=== PATIENT | male | born 1975 | race Caucasian/White ===

== ENCOUNTER 2022-05-03 11:36 | Inpatient (IN) | payer OTHER ==
[~2022-05-03] VITALS: Ht 200.7 cm; Wt 159.2 kg
--- NOTE | 2022-05-03 11:43 | NUR ---
[id number], left leg got caught on plumbing possible broken, fentanyl 100mcg and zofran 4mg given on scene, air splint on the left leg. pain is currently 6/10. vitals are within normal limits. dr perry at bedside.
--- NOTE | 2022-05-03 12:07 | NUR ---
X RAY AT BEDSIDE
[2022-05-03] MEDS ORDERED: TRAM50TA2 PO (12:15)
[2022-05-03] MEDS ORDERED: METH-647 PO (12:15)
[2022-05-03] MEDS ORDERED: LOSA100T31 PO (12:15)
[2022-05-03] MEDS ORDERED: METH750T3 PO (12:35)
[2022-05-03] MEDS ORDERED: DICL75TA5 PO (12:36)
[2022-05-03 13:03] LABS: BASOPHILS % (AUTO) 0.3 % (0.0-2.0); EOSINOPHILS % (AUTO) 1.4 % (0.0-6.0); HEMATOCRIT 43 % (39-51); HEMOGLOBIN 14.9 g/dL (13.5-17.5); LYMPHOCYTES # (AUTO) 1.2 K/uL (0.8-4.8); MEAN CORPUSCULAR HGB CONC 35 g/dl (31.0-36.0); MEAN CORPUSCULAR VOLUME 94 fL (80-96); MONOCYTES # (AUTO) 0.5 K/uL (0.1-1.30); MONOCYTES % (AUTO) 7.2 % (2.0-12.0); NEUTROPHILS # (AUTO) 5.7 K/uL (1.8-8.9); NEUTROPHILS % (AUTO) 75.1 % (43.0-81.0); PLATELET COUNT (AUTO) 176 K/uL (150-450); RED BLOOD CELL COUNT(AUTO) 4.54 MIL/uL (4.5-6.0); WHITE BLOOD COUNT (AUTO) 7.6 K/uL (4.3-11.0)
[2022-05-03 13:16] LABS: CALCIUM, SERUM 8.8 mg/dL (8.5-10.1); CREATININE 0.8 mg/dL (0.6-1.3); POTASSIUM 4.1 mmol/L (3.5-5.1)
[2022-05-03] MEDS ORDERED: HYDROMORPHONE 1 MG/1 ML DISP.SYRIN ONE ×2 (14:00→17:15)
[2022-05-03] MEDS ORDERED: ONDANSETRON HCL/PF 4 MG/2 ML VIAL ONE (14:00)
[2022-05-03] MEDS ORDERED: ONDANSETRON HCL/PF - ER 4 MG/2 ML VIAL IV ONE (14:00)
[2022-05-03] MEDS ORDERED: HYDROMORPHONE 1 MG/1 ML DISP.SYRIN IV ONE (14:00)
--- NOTE | 2022-05-03 14:47 | NUR ---
SPOKE TO JULIO MONGE AND STATED DR JONES WILL CONTACT US FOR PEER TO PEER AND FOR CLINICALS TO BE FAXED TO [phone] AND [phone]
--- NOTE | 2022-05-03 15:06 | NUR ---
FAXED CLINICALS TO [phone]
--- NOTE | 2022-05-03 15:20 | NUR ---
GOT VERBAL AUTHORIZATION FROM JULIO BEE FOR PT TO STAY
[2022-05-03] MEDS ORDERED: IV NS 0.9% 1,000 ML BAG IV ONE (15:30)
--- NOTE | 2022-05-03 15:50 | NUR ---
DR CHESTER AT BEDSIDE FOR EVAL.
--- NOTE | 2022-05-03 15:52 | NUR ---
DR CHESTER STATED PT WILL NOT BE RECIVING SURGERY TODAY, PT PROVIDED WITH FLUID AND SNACKS.
[2022-05-03] MEDS ORDERED: HYDROMORPHONE 1 MG/1 ML DISP.SYRIN IV STA (17:13)
[2022-05-03] MEDS ORDERED: MAGNESIUM HYDROXIDE 30 ML UDC PO PRN (17:30)
[2022-05-03] MEDS ORDERED: ACETAMINOPHEN 325 MG TABLET PO PRN (17:30)
[2022-05-03] MEDS ORDERED: MAG HYDROX/AL HYDROX/SIMETH 30 ML UDC PO PRN (17:30)
[2022-05-03] MEDS ORDERED: ONDANSETRON HCL/PF 4 MG/2 ML VIAL IVP PRN (17:30)
[2022-05-03] MEDS ORDERED: Z GUARD REMEDY 4 OZ OINT TP PRN (17:30)
--- NOTE | 2022-05-03 17:57 | NUR ---
room 312-2
--- NOTE | 2022-05-03 18:02 | NUR ---
report given to nurse Garland for luc
--- NOTE | 2022-05-03 18:15 | NUR ---
RN NOTE RECEIVED REPORT FROM ANTON.
--- NOTE | 2022-05-03 19:30 | NUR ---
MS DIRECTOR OF COMPENSATION NOTES RECEIVED ON BED PER GURNEY FROM ER,INJURED FROM WORK,SUSTAINED FRACTURE ON LEFT TIBIA.WITH SPLINT WRAPPED WITH SURGICAL DRESSING,ELEVATED ON PILLOWS.PAIN TOLERABLE AT THE MOMENT.SALINE LOCK RIGHT AC INTACT AND PATENT.WITH KNOWN HX OF BACK ARTHRITIS,HYPERTENSION AND RIGHT HIP SURGERY 3 YRS AGO,FULLY VACCINATED WITH COVID VACCINE MODERNA,NO SKIN ISSUES BESIDE INJURED LEFT LEG.INSTRUCTED NPO POST MIDNIGHT FOR LEFT TIBIA OPEN REDUCTION AND INTERNAL FIXATION BY DR ROSAS.WILL MONITOR FOE PAIN,CALL LIGHT IN REACH,NEEDS ANTICIPATED.
--- NOTE | 2022-05-03 19:42 | NUR ---
RN NOTE NEW ADMISSION, V/S TAKEN AND STABLE, BELONGINGS LIST CHECKED AND SIGNED, REPORT WAS ENDORSE TO [place] TECHNICIAN NURSE.
[2022-05-03 20:00] VITALS: BP 138/74
[2022-05-03] MEDS: MORPHINE SULFATE INJ 2 MG/ML DISP.SYRIN IV PRN (20:48)
--- NOTE | 2022-05-03 20:48 | NUR ---
MS RN NOTES PAIN MANAGEMENT C/O LEFT LEG PAIN 06/16 ON PAIN SCALE,MORPHINE 2MG IV GIVEN ORDERED,VITAL SIGNS STABLE
[2022-05-04] VITALS (7 sets, daily range): BP systolic 127–158; BP diastolic 61–89
--- NOTE | 2022-05-04 | NUR ---
MS RN NOTES INSTRUCTED NPO THIS TIME,GOING FOR LEFT TIBIA OPEN REDUCTION AND INTERNAL FIXATION BY DR CHESTER,SCHEDULED AT [id number]
--- NOTE | 2022-05-04 00:15 | NUR ---
MS RN NOTES UNABLE TO FLUSH IV SITE,NEW SALINE LOCK PLACE ON LEFT AC #20.FLUSHED WITH NS AND KEPT PATENT.
[2022-05-04] MEDS: MORPHINE SULFATE INJ 2 MG/ML DISP.SYRIN IV PRN (00:37)
--- NOTE | 2022-05-04 00:37 | NUR ---
MS RN NOTES PAIN MANAGEMENT C/O PAIN 8/10 ON PAIN LEFT LOWER LEG,MORPHINE 2MG IV GIVEN ORDERED.VITAL SIGNS STABLE.
--- NOTE | 2022-05-04 03:00 | NUR ---
MS RN NOTES AWAKE THIS TIME,HAVING THROBBING PAIN ON LEFT LOWER LEG,HOSPITALIST MADE AWARE WITH NEW ORDER NOTED AND CARRIED OUT.
[2022-05-04] MEDS: METHOCARBAMOL (750MG) 750 MG TABLET PO SCH ×2 (03:24→21:38)
[2022-05-04] MEDS: HYDROMORPHONE 1 MG/1 ML DISP.SYRIN IV PRN ×4 (03:32→22:29)
--- NOTE | 2022-05-04 03:32 | NUR ---
MS RN NOTES PAIN MANAGEMENT PAIN ON LEFT KNEE 9-10/10 ON PAIN SCALE,FACIAL GRIMACE NOTED,DILAUDID 1MG IV GIVEN ORDERED.
[2022-05-04 06:24] LABS: BASOPHILS % (AUTO) 0.3 % (0.0-2.0); EOSINOPHILS % (AUTO) 2.2 % (0.0-6.0); HEMATOCRIT 41 % (39-51); HEMOGLOBIN 14.2 g/dL (13.5-17.5); LYMPHOCYTES # (AUTO) 1.4 K/uL (0.8-4.8); MEAN CORPUSCULAR HGB CONC 35 g/dl (31.0-36.0); MEAN CORPUSCULAR VOLUME 95 fL (80-96); MONOCYTES # (AUTO) 0.9 K/uL (0.1-1.30); MONOCYTES % (AUTO) 11.7 % (2.0-12.0); NEUTROPHILS # (AUTO) 5.6 K/uL (1.8-8.9); NEUTROPHILS % (AUTO) 68.8 % (43.0-81.0); PLATELET COUNT (AUTO) 162 K/uL (150-450); RED BLOOD CELL COUNT(AUTO) 4.32 MIL/uL (4.5-6.0); WHITE BLOOD COUNT (AUTO) 8.1 K/uL (4.3-11.0)
[2022-05-04 06:37] LABS: CALCIUM, SERUM 8.8 mg/dL (8.5-10.1); CREATININE 0.8 mg/dL (0.6-1.3); PHOSPHORUS 3.9 mg/dL (2.5-4.9)
--- NOTE | 2022-05-04 06:52 | NUR ---
MS RN NOTES MORNING CARE RENDERED,KEPT NPO ORDERED FOR ORIF LEFT TIBIA
--- NOTE | 2022-05-04 06:58 | NUR ---
MS RN NOTES SURGERY SPECIALIST BY ELVIS ALVARADO IN STABLE CONDITION
[2022-05-04] MEDS ORDERED: BUPIVACAINE 0.25% 75 MG/30 ML VIAL ONE (07:19)
[2022-05-04] MEDS ORDERED: MIDAZOLAM HCL 2 MG/2ML VIAL ONE ×2 (07:21→07:22)
[2022-05-04] MEDS ORDERED: HYDROMORPHONE INJ 2 MG/ML DISP.SYRIN ONE (07:22)
[2022-05-04] MEDS ORDERED: ROCURONIUM BROMIDE 50 MG/5 ML ONE ×3 (07:22→08:53)
--- NOTE | 2022-05-04 07:55 | NUR ---
MS RN OPENING NOTE Report given by KEVIN Sebastian. Patient brought to OR for surgery.
[2022-05-04] MEDS ORDERED: HYDROGEN PEROXIDE 480 ML BOTTLE ONE (09:35)
[2022-05-04] MEDS ORDERED: BACITRACIN ZINC OINT (15 GM) 15 GM TUBE TP ONE (10:13)
[2022-05-04] MEDS ORDERED: FENTANYL PF 100MCG/2ML AMPUL ONE (10:47)
--- NOTE | 2022-05-04 11:45 | NUR ---
RN NOTE Received patient from recovery room via bed. Patient is stable with the following VS: BP 146/75; HR 74; Temp 99.1; SPO2 92% on room air. Skin on left foot is warm with good capillary refill. Patient denies any pain or discomfort at this time. Will continue to monitor.
[2022-05-04] MEDS: LOSARTAN POTASSIUM 50 MG TABLET PO SCH (11:48)
--- NOTE | 2022-05-04 12:00 | NUR ---
RN NOTE Patient remains stable with VS: BP 139/89, HR 81, RR 19, Temp 97.6, SPO2 95% on room air. Patient able to move toes on Left foot, warm to touch with good capillary refill.
--- NOTE | 2022-05-04 12:15 | NUR ---
RN NOTE Patient remains stable with VS: BP 142/85, HR 84, RR 18, Temp 97.8, SPO2 98% on room air. Patient able to move toes on Left foot, warm to touch with good capillary refill.
--- NOTE | 2022-05-04 12:30 | NUR ---
RN NOTE Patient remains stable with VS: BP 137/75, HR 87, RR 18, Temp 97.7, SPO2 96% on room air. Patient able to move toes on Left foot, warm to touch with good capillary refill.
--- NOTE | 2022-05-04 12:57 | NUR ---
RN NOTE Patient complained of pain on LLE 8/10 on pain scale. PRN Dilaudid 1 mg given. Will continue to monitor.
[2022-05-04] MEDS ORDERED: DOCUSATE SODIUM 250 MG CAPSULE PO PRN (13:00)
[2022-05-04] MEDS ORDERED: SENNOSIDES 8.6 MG TABLET PO PRN (13:00)
[2022-05-04] MEDS ORDERED: ONDANSETRON HCL/PF 4 MG/2 ML VIAL IV PRN (13:00)
[2022-05-04] MEDS ORDERED: MORPHINE SULFATE INJ 4 MG/ML DISP.SYRIN IV PRN (13:00)
[2022-05-04] MEDS ORDERED: BISACODYL SUPP (10 MG) 10 MG/SUPP.RECT SUPP.RECT RC PRN (13:00)
[2022-05-04] MEDS ORDERED: ZOLPIDEM TARTRATE 5 MG TABLET PO PRN (13:00)
[2022-05-04] MEDS: ANCEF 1 GM/50 ML D5W IV SCH ×4 (16:00→23:16)
--- NOTE | 2022-05-04 18:55 | NUR ---
MS RN CLOSING NOTE Patient in bed, dozing in and out of sleep. A/O x 4, able to make needs known. On room air, breathing evenly and unlabored. No SOB or s/s of distress noted. IV access on Left wrist #20 SL intact and patent. All needs attended to. Due meds given. Surgical dressing on LLE c/d/i. LLE kept elevated at all times with ice. Patient able to move toes on left foot, warm to touch, with good capillary refill. Patient complaining pain on LLe, will give PRN pain medication. Safety precautions maintained: bed in low, locked position; siderails up x 2; diaz light within reach. Will endorse to gripper installer nurse for CARRIE.
--- NOTE | 2022-05-04 22:29 | NUR ---
MS RN NOTES PAIN MANAGEMENT AWAKEM THIS TIME,C/O PAIN ON LEFT LEFT 9/10 ON PAIN SCALE,DILAUDID 1MG IV ORDERED.VITAL SIGNS STABLE.
--- NOTE | 2022-05-04 23:30 | NUR ---
MS RN NOTES LAST DOSE OF ANCEF HUNG
[2022-05-05] MEDS: HYDROMORPHONE 1 MG/1 ML DISP.SYRIN IV PRN ×3 (02:11→10:21)
--- NOTE | 2022-05-05 02:11 | NUR ---
MS RN NOTES PAIN MANAGEMENT AWAKE,HAVING STRONG PAIN ON LEFT LEG,DILAUDID 1MG IV GIVEN PER PATIENT PATIENT REQUEST,ICE CAP TO SURGICAL SITE.
--- NOTE | 2022-05-05 06:16 | NUR ---
MS RN NOTES PAIN MANAGEMENT AWAKE,IN PAIN 9/10 ON PAIN SCALE,DILAUDID 1MG IV GIVEN ORDERED, INCENTIVE SPIROMETRY WHILE AWAKE.
--- NOTE | 2022-05-05 06:36 | NUR ---
MS RN NOTES ON BED A/O X4,SLEEP WITH INTERVALS.STILL IN A LOT PAIN,MANAGE WITH DILAUDID 1 MG IV,S/P ORIF LEFT TIBIA,DRESSING INTACT AND DRY ELEVATED ON FOLDED LINEN,NO PILLOWS PLEASE DIRECTED.LOVENOX TO START TODAY.CALL LIGHT IN REACH,NEEDS ATTENDED.
--- NOTE | 2022-05-05 07:50 | NUR ---
MS RN OPENING NOTES RECEIVED PATIENT IN BED, AWAKE, A/O X4. PATIENT ON ROOM AIR; BREATHING EVEN AND UNLABORED; NO SOB NOTED AT THIS TIME. COMPLAINING OF L KNEE PAIN. PAIN IS TREATED WITH PRN PAIN MEDICATION PER MD ORDER. IV ACCESS IN L WRIST G # 20 HL. SAFETY PRECAUTIONS IN PLACE; BED IN LOW POSITION AND LOCKED, RAILS UP X2, CALL LIGHT WITHIN REACH. WILL CONTINUE TO MONITOR PATIENT.
[2022-05-05 08:00] VITALS: BP 120/65
[2022-05-05] MEDS: ENOXAPARIN SODIUM 40 MG/0.4 ML DISP.SYRIN SQ SCH (08:07)
[2022-05-05] MEDS: LOSARTAN POTASSIUM 50 MG TABLET PO SCH (09:00)
--- NOTE | 2022-05-05 10:24 | NUR ---
MS RN NOTES PATIENT COMPLAINING OF PAIN 8 OUT OF 10 IN HIS L KNEE. REQUESTING PRN PAIN MEDICATION. PAIN MEDICATION ADMINISTERED. WILL REASSESS.
[2022-05-05] MEDS: HYDROCODONE/APAP 5/325MG TABLET PO PRN ×2 (15:00→19:48)
--- NOTE | 2022-05-05 15:01 | NUR ---
MS RN NOTES PATIENT COMPLAINING OF PAIN 6 OUT OF 10 IN HIS L KNEE. REQUESTING PRN PAIN MEDICATION. PRN NORCO 5/325 ADMINISTERED. WILL REASSESS.
[2022-05-05 16:15] VITALS: BP 126/65
--- NOTE | 2022-05-05 18:44 | NUR ---
MS RN CLOSING NOTES PATIENT REMAINS IN BED, AWAKE, A/O X4. PATIENT ON ROOM AIR; BREATHING EVEN AND UNLABORED; NO SOB NOTED DURING SHIFT. COMPLAINING OF L KNEE PAIN. PAIN IS TREATED WITH PRN PAIN MEDICATION PER MD ORDER DURING THE DAY. IV ACCESS IN L WRIST G # 20 HL. ALL NEEDS ATTENDED DURING THE DAY. SAFETY PRECAUTIONS IN PLACE; BED IN LOW POSITION AND LOCKED, RAILS UP X2, CALL LIGHT WITHIN REACH. WILL ENDORSE TO TEMPLATE CHECKER NURSE FOR CARRIE.
--- NOTE | 2022-05-05 19:05 | NUR ---
MS RN OPENING NOTES: RECEIVED PATIENT IN BED, AWAKE, A/O X4. NO S/S OF DISTRESS NOTED. COMPLAINING OF PAIN. CALL LIGHT WITHIN REACH. BED IN LOWEST AND LOCKED POSITION.HOB ELEVATED. LEFT LE ELEVATED WITH PILLOWS, GOOD CMS. PER REPORT FROM PREVIOUS SHIFT PATIENT WAS SEN BY PT THIS MORNING.
[2022-05-05 20:00] VITALS: BP 129/70
[2022-05-05] MEDS: METHOCARBAMOL (750MG) 750 MG TABLET PO SCH (23:18)
[2022-05-06] MEDS: HYDROCODONE/APAP 5/325MG TABLET PO PRN ×4 (01:09→13:03)
--- NOTE | 2022-05-06 07:40 | NUR ---
MS RN OPENING NOTES: RECEIVED PATIENT IN BED, AWAKE, A/O X4. NO S/S OF DISTRESS NOTED. NO COMPLAINTS OF PAIN. CALL LIGHT WITHIN REACH. BED IN LOWEST AND LOCKED POSITION.HOB ELEVATED. LEFT LE ELEVATED WITH PILLOWS. ALL SAFETY MEASURES IN PLACE. HEAD OF BED ELEVATED, LOCKED IN LOWEST POSITION, SIDE RAILS UP X2, CALL LIGHT WITHIN REACH. WILL CONTINUE TO MONITOR AND ATTEND TO PT NEEDS.
[2022-05-06 08:00] VITALS: BP 137/71
[2022-05-06] MEDS: ENOXAPARIN SODIUM 40 MG/0.4 ML DISP.SYRIN SQ SCH (09:07)
[2022-05-06 09:08] VITALS: BP 137/71
[2022-05-06] MEDS: LOSARTAN POTASSIUM 50 MG TABLET PO SCH (09:08)
[2022-05-06] MEDS ORDERED: HYDR-3972 PO (11:53)
[2022-05-06] MEDS ORDERED: RIVA10TA PO (11:53)
--- NOTE | 2022-05-06 14:45 | NUR ---
REVIEWED DISCHARGE INSTRUCTION WITH PT. PT VERBALIZED UNDERSTANDING. PT DISCHARGED VIA WHEELCHAIR WITH BELONGINGS, PRESCRIPTIONS, AND INSTRUCTIONS. IV PREVIOUSLY DISCONTINUED. PT LEFT HOSPITAL WITH RELATIVE TO HOME SELF CARE. V/S BP 137/71, ND 79, RR 20, T 98.5, O2 SAT 95%.
== END 2022-05-06 14:30 | disposition home health service (06) | DRG 313 ==
LOC: ER 11:40 → TRANSITION 16:28 → MED 17:59
PROVIDERS: ADMIT Internal Medicine; ATTEND Internal Medicine
PROC: 0QSH06Z Reposition Left Tibia with Intramedullary Internal Fixation Device, Open Approach (ICD-10-PCS; principal; 2022-05-04)
DX: S82.262A Displaced segmental fracture of shaft of left tibia, initial encounter for closed fracture (principal); E66.01 Morbid (severe) obesity due to excess calories; S82.402A Unspecified fracture of shaft of left fibula, initial encounter for closed fracture; X58.XXXA Exposure to other specified factors, initial encounter; I10 Essential (primary) hypertension; Z20.822 Contact with and (suspected) exposure to COVID-19; Z68.39 Body mass index [BMI] 39.0-39.9, adult; Y93.H3 Activity, building and construction; Y92.69 Other specified industrial and construction area as the place of occurrence of the external cause
CPT/HCPCS: 36415; 71045-TC; 73564-TC; 73590-TC; 73610-TC; 73700-TC; 80048-TC; 83735-TC; 84100-TC; 85025-TC; 85027-TC; 85730-TC; 87081-TC; 97112-TC; 97116-TC; 97530-TC; A4217; A6253; C1713; C9803; G0378; J0330; J0360; J0690; J1100; J1170; J1650; J1885; J2250; J2270; J2405; J2704; J3010; J3490; J7030; J7040; J7060